=== PATIENT | male | born 1950 | race Caucasian/White ===

== ENCOUNTER 2023-06-24 13:45 | Outpatient (RCR) | payer MEDICARE, SELFPAY | END 2023-09-22 23:59 | disposition home or self-care (01) | LOC: ANHAUDASC 13:45 | DX: Z46.1 Encounter for fitting and adjustment of hearing aid (principal) | CPT/HCPCS: 99199 ==

== ENCOUNTER 2023-07-04 10:17 | Outpatient (CLI) | payer MEDICARE, SELFPAY | END 2023-07-04 10:18 | disposition home or self-care (01) | LOC: ANHAUDASC 10:18 | PROVIDERS: Visit Provider Family Medicine | DX: H90.3 Sensorineural hearing loss, bilateral (principal) | CPT/HCPCS: 92557; 92567 ==

== ENCOUNTER 2024-06-12 14:48 | Emergency (ER) | payer MEDICARE, SELFPAY ==
--- NOTE | ~2024-06-12 | CT_ITS ---
EXAMINATION: CT brain wo con DATE: 06/12/2024 16:09 INDICATION: Fall with head injury TECHNIQUE: Computed tomography (CT) of the head was performed without intravenous contrast. Sagittal and coronal reconstructions were performed. The mA was adjusted according to patient size. Iterative reconstruction technique was employed. The dose-length product was 605.33 mGy-cm. COMPARISON: None FINDINGS: No fracture. No acute intracranial hemorrhage, acute infarction or abnormal extra axial fluid collect ion. There is mild scattered white matter hypoattenuation consistent with chronic small vessel ischem ic disease. Symmetric prominence of the sulci and ventricles consistent with mild age-appropriate dif fuse cerebral volume loss. No mass/mass effect. Changes of bilateral intraocular lens replacement. Th e orbits, paranasal sinuses and mastoid air cells are normal. IMPRESSION: 1. Normal aging brain. No fracture or acute intracranial process. Reviewed, dictated and finalized at location B. ING MANAGER
--- NOTE | ~2024-06-12 | XR_ITS ---
EXAMINATION: XR knee LT min 4V DATE: 06/12/2024 16:02 INDICATION: Left knee pain. Fall. TECHNIQUE: 4 views of left knee were obtained. COMPARISON: None. FINDINGS: Alignment is normal. No fracture. There is mild osteoarthritis of lateral and patellofemora l compartments characterized by tiny osteophytes. No knee joint effusion. There is prepatellar soft t issue swelling. IMPRESSION: 1. Mild left knee osteoarthritis. Reviewed, dictated and finalized at location A. EDUCATOR
--- NOTE | ~2024-06-12 | XR_ITS ---
XR shoulder LT min 2V Ordering provider: Miranda Foster History: . fall . Comparison: None. FINDINGS: BONES: No acute fracture or dislocation. JOINT SPACES: The acromioclavicular joint shows osteoarthritic changes. The glenohumeral joint is nor mal. SOFT TISSUES: Normal. IMPRESSION: No acute osseous abnormality left shoulder. Reviewed, dictated and finalized at location A. AL LATHE MACHINIST
--- NOTE | ~2024-06-12 | XR_ITS ---
EXAMINATION: XR ribs LT 2V w CXR 2V DATE: 06/12/2024 16:02 INDICATION: Left rib pain. Fall. TECHNIQUE: Frontal and lateral views of the chest and 2 views on 3 radiographs of the left ribs were obtained. COMPARISON: None. FINDINGS: CHEST TWO VIEWS: There is an interstitial pattern in the lungs with a lower lung predominance. No ple ural effusion or pneumothorax. The heart size is normal. LEFT RIBS: There are old healed fractures of left ninth and 10th ribs. IMPRESSION: 1. No acute rib fracture. 2. Diffuse interstitial pattern in the lungs, consistent with mild pulmonary edema versus chronic zak g disease. Reviewed, dictated and finalized at location A. DIE PRESS FEEDER IMPRESSION: 1. No acute rib fracture. 2. Diffuse interstitial pattern in the lungs, consistent with mild pulmonary ed giorgi versus chronic lung disease.
[2024-06-12 15:08] VITALS: BP 167/94; PULSE 71; RESP 18; TEMP 36.3; O2SAT 100
--- NOTE | 2024-06-12 15:36 | ED.WOUNDLAC ---
HPI - Wound/Laceration General Chief Complaint: Wound/Laceration Stated Complaint: trip and fall, lac to head, bleeding controlled Time Seen by Provider: 06/12/24 16:18 Focused HPI: 73-year-old male presents with his at bedside for a ground level fall that occurred prior to arrival. Patient states he was walking and talking when he did not realize he was about to step off of a curb and fell to the ground. He landed on the left side of his body. He did hit his head obtain 2 small lacerations to the left eyebrow. Bleeding controlled with bandage. Last Tdap unknown. He is complaining of pain to his left shoulder, left ribs and left knee. Denies neck or back pain. He is not anticoagulated. Denies other injuries acquired. GENERAL: Well-appearing, well-nourished, and in no acute distress. HEAD: Normocephalic. One less than 0.5 small lacerations to the left lateral eyebrow with mild active bleeding, no deep structures or foreign bodies visualized. Small abrasion medial to the laceration. No bony tenderness, crepitus, step-offs or deformities CHEST: Clear to auscultation. ?No respiratory distress. Tenderness to the left anterior lateral chest wall with no overlying ecchymosis, crepitus, step-offs or deformities EXT: Tenderness to the medial joint line of the left knee with no obvious deformity or edema, full active range of motion of knee, DP pulse 2+, sensation intact. Diffuse tenderness the left proximal humerus without overlying deformity or ecchymosis, full range of motion, sensation intact, automotive product engineer strength 5/5, radial pulse 2 +, sensation intact HEART: Regular rate and rhythm.? NEURO: ?Alert and oriented x3. Cranial nerves 2-12 intact. Strength 5/5 in BUE and BLE. Sensation intact throughout Patient screened in triage and initial orders placed.? ?Additional care and disposition to be based upon?diagnostic testing and treatment. History of Present Illness HPI narrative: Agree with the above note Related Data Home Medications ?Medication ?Instructions ?Recorded ?Confirmed ?Last Taken ?Type ascorbic acid (vitamin C) 125 mg 125 mg PO DAILY 06/29/19 Unknown History chewable tablet (Vitamin C) buspirone 10 mg tablet 10 mg PO BID 06/29/19 Unknown History calcium 600 mg (as carbonate)-vit tablet PO 06/29/19 Unknown History D3 10 mcg (400 unit) chewable tablet (Calcium 600 with Vitamin D3) fluticasone propionate 50 2 spray intranasal DAILY 06/29/19 Unknown History mcg/actuation nasal spray,suspension (Allergy Relief (fluticasone)) lamotrigine 100 mg tablet 100 mg PO BID 06/29/19 Unknown History (Lamictal) multivitamin 1 tablet PO DAILY 06/29/19 Unknown History omega-3 fatty acids-fish oil 360 1 cap PO DAILY 06/29/19 Unknown History mg-1,200 mg capsule (Fish Oil) Allergies Allergy/AdvReac Type Severity Reaction Status Date / Time NKDA Allergy Unknown none Uncoded 06/26/23 09:49 Review of Systems Review of Systems: All systems reviewed & are unremarkable except as noted in HPI and below PMFSH Past Medical History Medical History (Updated 06/12/24 @ 16:51 by Miranda Foster PA-C) Essential tremor Bipolar 1 disorder, manic, full remission Seasonal allergies Family History Family History (System 06/26/23 @ 09:49 by Clay Connelly) Grandparent Hypertension Cerebrovascular accident Family history of throat cancer Mother Hypertension Family history of dementia Family history of malignant neoplasm of breast in first degree relative Father Cerebrovascular accident Sibling Family history of diabetes mellitus in first degree relative Social History Social History (System 06/26/23 @ 09:49 by Clay Connelly) Smoking status: Never smoker Alcohol intake: never Exam Narrative: GENERAL: Well-appearing, well-nourished, and in no acute distress. HEAD: Normocephalic. One less than 0.5 small lacerations to the left lateral eyebrow with mild active bleeding, no deep structures or foreign bodies visualized. Small abrasion medial to laceration. No bony tenderness, crepitus, step-offs or deformities CHEST: Clear to auscultation. ?No respiratory distress. Tenderness to the left anterior lateral chest wall with no overlying ecchymosis, crepitus, step-offs or deformities EXT: Tenderness to the medial joint line of the left knee with no obvious deformity or edema, full active range of motion of knee, DP pulse 2+, sensation intact. Diffuse tenderness the left proximal humerus without overlying deformity or ecchymosis, full range of motion, sensation intact, automotive product engineer strength 5/5, radial pulse 2 +, sensation intact HEART: Regular rate and rhythm.? NEURO: ?Alert and oriented x3. Cranial nerves 2-12 intact. Strength 5/5 in BUE and BLE. Sensation intact throughout Course Vital Signs Vital signs: Vital Signs Temperature 97.3 F L 06/12/24 15:08 Pulse Rate 71 06/12/24 15:08 Respiratory Rate 18 06/12/24 15:08 Blood Pressure 167/94 H 06/12/24 15:08 Pulse Oximetry 100 06/12/24 15:08 Temperature 97.3 F L 06/12/24 15:08 Pulse Rate 71 06/12/24 15:08 Respiratory Rate 18 06/12/24 15:08 Blood Pressure 167/94 H 06/12/24 15:08 Pulse Oximetry 100 06/12/24 15:08 Procedures Laceration Laceration 1: Time: 19:03 Site: face Side (If applicable): left Size (cm): 0.25 Description: linear Pre-repair: wound explored, irrigated and irrigated extensively ====== Skin Level ====== Skin layer closed with: dermabond ====== Subcutaneous Layer ====== ====== Muscle Layer ====== ====== Tendon Layer ====== MDM - Wound/Laceration MDM Narrative Medical decision making narrative: 73-year-old male presents to the emergency department after mechanical ground level fall that occurred prior to arrival. Patient did hit his head but did not lose consciousness. He is not anticoagulated. Exam is significant for the above. CT brain shows no acute intracranial findings. X-ray of the shoulder, knee and ribs show no acute findings. Patient was updated on workup. Laceration irrigated with normal saline and closed with skin glue without complications. Tdap updated. Patient was advised to follow-up with PCP and return precautions were discussed. He is agreeable with the plan verbalized understanding. Discharged in stable condition. Discharge Plan Discharge Clinical Impression: Laceration Fall Qualifiers: Encounter type: initial encounter Qualified Code(s): W19.XXXA - Unspecified fall, initial encounter Contusion of knee Qualifiers: Encounter type: initial encounter Laterality: left Qualified Code(s): S80.02XA - Contusion of left knee, initial encounter Contusion of rib Qualifiers: Encounter type: initial encounter Laterality: left Qualified Code(s): S20.212A - Contusion of left front wall of thorax, initial encounter Patient Disposition: Home, Self-Care Condition: Stable Instructions: Antibiotic Form, Laceration (DC), Knee Pain (ED), Rib Contusion (ED) Additional Instructions: Take Tylenol as needed for pain. Follow up with her primary care provider. Return to the emergency department if you develop surrounding redness, drainage, vision changes, focal numbness or weakness or other concerning symptoms. Patient Language: Dominican Prescriptions: No Action Calcium 600 with Vitamin D3 600 mg(1,500mg) -400 unit tablet,chewable PO ascorbic acid (vitamin C) [Vitamin C] 125 mg tablet,chewable 125 mg PO DAILY omega-3 fatty acids-fish oil [Fish Oil] 360-1,200 mg capsule 1 cap PO DAILY multivitamin Tablet 1 tablet PO DAILY fluticasone propionate [Allergy Relief (fluticasone)] 50 mcg/actuation spray,suspension 2 spray NASAL DAILY Rx Instructions: administer into each nostril lamotrigine [Lamictal] 100 mg tablet 100 mg PO BID buspirone 10 mg tablet 10 mg PO BID Patient Comments: Dr. Pardo (psych) prescribes Follow-up/Referrals: Felix,Tariq Louis MD [Primary Care Provider] -
[2024-06-12] MEDS: TETANUS,DIPHTHERIA,AC PERTUSSIS ADULT (0.5 ML) BOOSTRIX IM (16:57)
== END 2024-06-12 17:00 | disposition home or self-care (01) ==
PROVIDERS: Emergency Provider Physician Assistant; PCP Family Medicine
DX: S01.112A Laceration without foreign body of left eyelid and periocular area, initial encounter (principal); S80.02XA Contusion of left knee, initial encounter; S20.212A Contusion of left front wall of thorax, initial encounter; F31.9 Bipolar disorder, unspecified; G25.0 Essential tremor; W10.1XXA Fall (on)(from) sidewalk curb, initial encounter; Z23 Encounter for immunization
CPT/HCPCS: 12011; 70450; 71046; 71100; 73030; 73564; 90471; 90715; 99284

== ENCOUNTER 2024-10-08 00:46 | Day surgery (SDC) | payer MEDICARE, SELFPAY ==
[2024-07-13 15:08] VITALS: BMI 21.2
[2024-09-28 12:55] VITALS: BMI 21.2
--- OUTSIDE RECORDS SUMMARY | 2024-10-08 00:49 | XMS_ITS | Clinical Summary ---
Author Organization [facility] Address [address] [place] [address] Care Team Providers Care Director Of Teacher Education Name Role Phone Tianna Olson MD Primary Care Pro vider Allergies No known active allergies Medications lamoTRIgine 100 MG tablet Take 200 mg by mouth 2 (two) times daily. Active propranolol 10 MG tablet Take 10 mg by mouth 2 (two) times daily. Active busPIRone 10 MG tablet Take 10 mg by mouth 2 (two) times daily. Active fluticasone propionate 50 MCG/ACT nasal spray 1 spray by Each Nostril route daily. Active calcium carb-cholecalci ferol 600-400 MG-UNIT Tab tablet 1 tablet daily. Active multi vitamin/mineral s tablet Take 1 tablet by mouth daily. Active omega-3 fatty acid 500 MG capsule Take 1,200 mg by mouth daily. Active Social History Tobacco Use Types Packs/Day Years Used Date Smoking Tobacco: Never Smokeless Tobacco: Never Alcohol Use Standard Drinks/Week Comments Not Currently 0 (1 standard drink = 0.6 oz pur e alcohol) Sex and Gender Information Value Date Recorded Sex Assigned at Not on file Legal Sex Male 11:50 AM CDT Gender Identity Not on file Sexual Orientation Not on file Last Filed Vital Signs Vital Sign Reading Time Taken Comments Blood Pressure 116/58 2019 12:43 PM CDT Pulse 62 2019 12:43 PM CDT Temperature 37 C (98.6 F) 2019 12:43 PM CDT Respiratory Rate 18 2019 12:43 PM CDT Oxygen Saturation 98% 2019 12:43 PM CDT Inhaled Oxygen Concentration - - Weight 63.5 kg (140 lb) 10/27/2019 4:42 PM CDT Height 170.2 cm (5' 7 ) 10/27/2019 4:42 PM CDT Body Mass Index 21.93 10/27/2019 4:42 PM CDT Plan of Treatment Health Maintenance Due Date Last Done Comments Colorectal Cancer Screening Colonoscopy (10 Years) 1948 Hepatitis C 1966 DTaP, Tdap and Td Vaccines ( 1 - Tdap) 11/07/1967 Pneumococcal Vaccine: 50+ Ye ars (1 of 1 - PCV) 1998 Zoster Vaccines (1 of 2) 1998 Annual Medicare Wellness Visit 2013 RSV Immunization or 60+ Years (1 - 1-dose 75+ series) 11/07/2023 COVID-19 Vaccine ( - 2023-2 5 season) 2024 Meningococcal B Vaccine Aged Out No l onger eligible based on patient's age to complete this topic Meningococcal Vaccine Aged Out No chalo renzo eligible based on patient's age to complete this topic RSV Immunizations Under 20 Months Aged Out No longer eligible based on patient's age to complete this topic Medical Devices Implanted Type Area Toe Stapler Device Identifier Shelf Expiration Date Model / Serial / Lot Iol [employer] Zcboo - [id number] Implanted:Qty: 1 on 2019 by Andrew Cruz MD at [facility] Lens Left: Eye [employer] 10/15/2022 [id number] / [id number] / Insurance MEDICARE [facility] Care Teams Director Of Teacher Education Relationship Specialty Start Date End Date Tianna Olson MD [address] [place] [address] PCP - General FAMILY PRACTICE 11/01/19
--- OUTSIDE RECORDS SUMMARY | 2024-10-08 00:49 | XMS_ITS | Patient Health Record ---
Author Organization [facility] Address [address] [place] [address] Care Team Providers Care Convention Planner Name Role Phone Monserrat Leyva Unavailable [phone] Migration, Provider Unavailable Unavailable Allergies No Known Allergies Reason For Referral No Information Medications Medication SIG (Take, Route, Frequency, Duration) Notes Start Date End Date Status Multivitamin - 1 tablet Orally Once a day Active [place] 3 1000 MG 1 capsule Orally onc e daily Active Rosuvastatin Calcium 20 MG 1 tablet Oral ly Once a day Active busPIRone HCl 10 MG Take [address] [facility] twice daily for 90 Active Ascorbic Acid 125 MG as directed Orally Active Propranolol HCl 10 MG 1 tablet Oral twic e a day for 90 days Active lamoTRIgine 100 MG 1.5 tablet in the mo rning and 2 tablets at bedtime Oral for 90 days Active Calcium + Vitamin D3 600-5 MG-MCG 1 tablet with a meal Orally Once a day Active Ferrous Sulfate 325 (65 Fe) MG 1 tablet Orally Three times a Week Active Fluticasone Propionate (Inhal) 50 MCG/ACT 1 puff Inhalation Twice a day Active Immunizations Vaccine Route Administration Date Status Comme nts Pneumococcal polysaccharide PPV23 Unknown 07/02/2016 Ad ministered Infuenza, trivalent, recombi nant, preservative free Unknown 03/16/2018 Administered Infuenza, trivalent, recombi nant, preservative free Unknown 04/22/2019 Administered Influenza, unspecified formulation Unknown 03/24/2020 A dministered Influenza, unspecified formulation Unknown 03/29/2021 A dministered Influenza, high dose seasonal Unknown 03/21/2015 Admini stered Influenza, high dose seasonal Unknown 03/22/2016 Admini stered Influenza, high dose seasonal Unknown 04/04/2017 Admini stered Social History Tobacco Use: Social History Observation Description Date Details (start date - stop date) Never Smoker NA - NA Sex Assigned At : Social History Observation Description Sex Assigned At Male Household Question Answer Notes Marital status: Tobacco Control (Standard) Question Answer Notes Tobacco use: Nonsmoker Problems Problem Type SNOMED Code ICD Code Onset Dates Problem Status W/U Status Risk Notes Problem Bipolar II disorder (44498037) Bipolar II disorder (F31.81) Active confirmed Problem Generalized anxiety disorder (05835607) Generalized anxiety disorder (F41.1) Active confirmed Vital Signs Height-cm 167.64 cm 10/21/2023 Height 66.00 in 10/21/2023 Encounters Encounter Location Date Provider Diagnosis [facility] [place] [address] [facility] [address] [place] [address] 10/15/2023 Provider Migration Generalized anxiety disorder F41.1 [place] [address] [place] [address] 10/21/2023 Monserrat Leyva Bipolar II disorder F31.81 and Generalized anxiety disorder F41.1 [facility] [address] [place] [address] 01/20/2024 Monserrat Autumn Bipolar II disorder F31.81 and Generalized anxiety disorder F41.1 [facility] [address] [place] [address] 07/20/2024 Monserrat Autumn Bipolar II disorder F31.81 and Generalized anxiety disorder F41.1 [facility] [address] [place] [address] 10/15/2023 Provider Migration [facility] [address] [place] [address] 10/26/2023 Provider Migration [facility] [address] [place] [address] 10/27/2023 Provider Migration [facility] [address] [place] [address] 10/28/2023 Provider Migration [place] [address] [place] [address] 12/19/2023 Monserrat Leyva Assessments Encounter Date Diagnosis (ICD Code) Assessment Notes Treatment Notes Treatment Clinical Notes Section Notes 01/20/2024 Bipolar II disorder (ICD-10 - F31.81) 01/20/2024 Generalized anxiety disorder (ICD-10 - F41.1) 10/21/2023 Bipolar II disorder (ICD-10 - F31.81) 10/21/2023 Generalized anxiety disorder (ICD-10 - F41.1) 10/15/2023 Generalized anxiety disorder (ICD-10 - F41.1) 07/20/2024 Bipolar II disorder (ICD-10 - F31.81) 07/20/2024 Generalized anxiety disorder (ICD-10 - F41.1) 01/20/2024 Other Stable, continue current medications. Refills sent in today. Patient educated on all medications including potential benefits, side effects, risks. Educated on proper dosing schedule and importance of compliance. 07/20/2024 Other Increase Lamictal to 150mg qAM, 200mg qPM for mood stabilization Patient educated on all medications including potential benefits, side effects, risks. Educated on proper dosing schedule and importance of compliance. -Assessment and treatment plan reviewed with patient. -Compliance with treatment plan importance discussed. -Discussed the risks/benefits of this medication -Discussed medication side effects. -Contact office if symptoms worsen. -Discussed that it can take up to 6-8 weeks to see full therapeutic effects of psychotropic medications. -Crisis prevention hotline 118. Plan Of Treatment Next Appt Details Provider Name:Monserrat Leyva, 01/11/2025 10:00:00 AM, [address] [address], [facility] [address], [place], [address], Insurance Providers Payer Name Payer Address Payer Phone Subscriber Number Group Number Insured Name Patient Relationship to Insured Coverage Start Date Coverage End Date Medicare-I l Medicare [address] [facility] [place] [address] [id number] JAYNEJAECANDACE YUSUF Self - patient is the insured [facility] Medicare Supplement [address] [facility] [place] [place] [address] [id number] CANDACE PAGAN Self - patient is the insured Medical (General) History Medical History History ICD Code Problems: Bipolar II disorder Generalized anxiety disorder Patient encounter status Recurrent manic episodes, moderate essential tremor Surgical History Surgery Date(Month/Year) Cataract surgery (92751) 08/26/2019 Any surgical history 11/22/2000
--- OUTSIDE RECORDS SUMMARY | 2024-10-08 00:49 | XMS_ITS | Clinical Summary ---
Author Organization [address] Address [address] [place] [id number] Care Team Providers Care Bin Operator Name Role Phone Tariq Washington MD Primary Care Provider [phone] Monserrat Leyva NP Unavailable [phone] Shekhar Joy MD Unavailable [phone] Andrew Cruz MD Unavailable [phone] Allergies No known active allergies Medications lamoTRIgine (LaMICtal) 100 mg tablet TAKE 1 TABLET BY MOUTH IN THE MORNING DAILY AND TWO TABLETS NIGHTLY AT BEDTIME. 07/18/19 22 Active propranoloL (INDERAL) 10 mg tablet Take 1 tablet (10 mg total) by mouth 2 (two) times a day 07/17/19 22 Active omega-3 fatty acids 500 mg capsule Take 1,200 mg by mouth daily Active multivitamin with minerals (Multiple Vitamin-Minera ls) tablet Take 1 tablet by mouth daily Active busPIRone (BUSPAR) 10 mg tablet Take 2 tablets (20 mg total) by mouth 2 (two) times a day 08/20/19 24 Active rosuvastatin (Crestor) 20 mg tablet Take 1 tablet (20 mg total) by mouth daily 90 tablet 3 04/01/20 24 025 Active calcium carbonate-margarito min D3 1500 mg (600 mg elemental) -200 units per tablet daily Active ascorbic acid, vitamin C, 125 mg capsule as directed Orally Active ferrous sulfate 325 mg (65 mg of elemental iron) tablet 1 tablet Orally Three times a Week Active fluticasone propionate (FLONASE) 50 mcg/actuation nasal spray Administer 1 spray into each nostril daily Active fluticasone propionate (FLOVENT DISKUS) 50 mcg/actuation diskus inhaler 1 puff every 12 hours 025 Discontinued Active Problems Problem Noted Date Diagnosed Date Bipolar II disorder 04/01/2024 Generalized anxiety disorder 04/01/2024 Mild neurocognitive disorder 11/01/2023 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 Gianni Manrique is not up to date on screening tests. He is in need of hepatitis B screening and Colon cancer screening. He is up to date on needed preventative vaccinations. We discussed healthy lifestyle habits, educational material has been given. Medications reviewed, changes documented as per the medical record and discussed with patient along with risks vs benefits. Return in 6 months Prediabetes 09/26/2023 Manic affective disorder, re current episode, moderate degree 08/06/2023 Encounter for medical examination to establish c are 09/26/2022 Assessment & Plan (09/26/2022 10:29 AM CDT): A(n) initial well visit to establish care has been performed today. Gianni Manrique is not up to date on screening tests. He is in need of Cholesterol screening- we will get record on his last colonoscopy. He is not up to date on needed preventative vaccinations; He is in need of Tdap/Td, Pneumonia (Prevnar-13 or Pneumovax-23) and Zoster. We discussed healthy lifestyle habits, educational material has been given. Medications reviewed, changes documented as per the medical record and discussed with patient along with risks vs benefits. Return in 1 year Encounters Date Type Department Care Team Description 09/30/2024 Results Follow-Up [facility] Primary Care at [address] [id number] Tariq Washington MD 09/29/2024 6:03 PM CDT - 09/29/2024 11:59 PM CDT Hospital Encounter [address] [address] Manic affective disorder, recurrent episode, moderate degree (HCC); Prediabetes; Iron deficiency anemia, unspecified iron deficiency anemia type; Screening for malignant neoplasm of prostate Discharge Disposition: Discharge to home or self care 09/29/2024 10:30 AM CDT Lab [facility] Outpatient Lab at [address] [phone] Encounter for medical examination to establish care (Primary Dx); Prediabetes 09/29/2024 10:00 AM CDT Office Visit [facility] Primary Care at [address] [phone] Tariq Washington MD Encounter for annual wellness visit (AWV) in Medicare patient (Primary Dx); Manic affective disorder, recurrent episode, moderate degree (HCC); Prediabetes; Iron deficiency anemia, unspecified iron deficiency anemia type; Screening for malignant neoplasm of prostate from Last 3 Months Immunizations Immunization Administration Dates Next Due Influenza, Quad, Adjuvantate d, Intramuscular 05/08/2023,03/30/2022,03/29/2021,03/24 Influenza, Trivalent, Adjuva nted, Intramuscular 03/24/2024,04/22/2019,04/22/2019,03/16,03/16/2018 Influenza, Trivalent, High D ose, Split, Preservative Free, Intramuscular 04/04/2017,03/22/2016,03/21/2015 Influenza, Unspecified 03/29/2021,03/24/2020 Pneumococcal Conjugate PCV 13 07/12/2017 Pneumococcal Conjugate Pcv20 02/26/2024 Pneumococcal Polysaccharide PPV23 07/02/2016 Tdap 06/12/2024 ZOSTER Recombinant 06/01/2013 Surgical History Surgery Date Site/Laterality Comments CATARACT EXTRACTION 06/10/2018 - 06/09/2019 Bilateral HERNIA REPAIR 06/10/2000 - 06/09/2001 TONSILLECTOMY 06/10/1962 - 06/09/1963 CATARACT EXTRACTION W/ INTRA OCULAR LENS IMPLANT 06/10/2023 - 06/09/2024 Bilateral Medical History Medical History Date Comments Anxiety 2010 Manic affective disorder, recurrent episode, mod erate degree (HCC) Essential tremor Family History Medical History Relation Name Comments Diabetes Brother Colon cancer Father Kevan Manrique Stroke Father Kevan Manrique Alcohol abuse Father's Sister Diabetes type II Father's Sister No Known Problems Maternal Grandfather No Known Problems Maternal Grandmother Breast cancer Mother Migdalia Christineigler Cancer Mother Migdalia Manrique Narcolepsy Mother Migdaliaksenia Christineiglalexandre Throat cancer Paternal Grandfather Hypertension Paternal Grandmother Stroke Paternal Grandmother Asthma Son Chris Manrique Relation Name Status Comments Brother Alive Father Kevan Manrique Father's Sister Unknown Maternal Grandfather Maternal Grandmother Mother Migdalia Manrique Paternal Grandfather Paternal Grandmother Son Chris Manrique Alive Social History Tobacco Use Types Packs/Day Years Used Date Smoking Tobacco: Never Passive Smoke Exposure: Never Smokeless Tobacco: Never Tobacco Cessation:Counseling Given: Not Answered AUDIT-C Answer Date Recorded Q1: How often do you have a drink containing alc ohol? Monthly or less 09/25/2022 Q2: How many drinks containi ng alcohol do you have on a typical day when you are drinking? 1 or 2 09/25/2022 Q3: How often do you have si x or more drinks on one occasion? 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 Not on file Not on file Not on file Obstetrics History Last Filed Vital Signs Vital Sign Reading Time Taken Comments Blood Pressure 134/70 09/29/2024 9:59 AM CDT Pulse 69 09/29/2024 9:59 AM CDT Temperature 35.9 C (96.6 F) 09/29/2024 9:59 AM CDT Respiratory Rate 16 09/29/2024 9:59 AM CDT Oxygen Saturation 97% 09/29/2024 9:59 AM CDT Inhaled Oxygen Concentration - - Weight 63.5 kg (140 lb) 09/29/2024 9:59 AM CDT Height 170.2 cm (5' 7 ) 09/29/2024 9:59 AM CDT Body Mass Index 21.93 09/29/2024 9:59 AM CDT Plan of Treatment Health Maintenance Due Date Last Done Comments Covid-19 Vaccine ( season) 2024 04/25/2024, 06/06/2023, 04/21/2022, Additional history exists Depression Screening 09/29/2025 09/29/2024, 04/01/2024, 10/29/2023, Additional history exists Fall Risk Assessment 09/29/2025 09/29/2024, 10/29/2023, 09/26/2023, Additional history exists Well Visit 65+ 09/29/2025 09/29/2024, 09/08, 09/25/2022 Zoster Vaccine (2 of 2) 09/29/2025 06/01/2013 Post poned from 07/27/2013 (Insurance / Financial) DTaP/Tdap/Td Vaccine (2 - Td or Tdap) 06/12/2034 06/12/2024 Colon Cancer Screening-Colonoscopy Discontinued 03/01/2011 Hepatitis C Screening Completed 09/25/2022 Hepatitis B Screening Completed 09/26/2023 Pneumococcal vaccine 65+ Completed 024, 07/12/2017, 07/02/2016 Influenza Vaccine Completed 03/24/2024, , 03/30/2022, Additional history exists Procedures Procedure Name Priority Date/Time Associated Diagnosis Comments EGFR Routine 09/29/2024 12:00 PM CDT Manic affective disorder, recurrent episode, moderate degree (HCC) DIFFERENTIAL AUTO Routine 09/29/2024 12: 00 PM CDT Iron deficiency anemia, unspecified iron deficiency anemia type LIPID PANEL Routine 09/29/2024 12:00 PM CDT Prediabetes PSA SCREEN Routine 09/29/2024 12:00 PM CDT Screening for malignant neoplasm of prostate CBC WITH AUTO DIFFERENTIAL Routine 09/29/2024 12:00 PM CDT Iron deficiency anemia, unspecified iron deficiency anemia type HEMOGLOBIN A1C Routine 09/29/2024 12:00 PM CDT Prediabetes COMPREHENSIVE METABOLIC PANEL Routine 09/29/2024 12:00 PM CDT Manic affective disorder, recurrent episode, moderate degree (HCC) HEPATITIS C ANTIBODY Routine 09/25/2022 10:27 AM CDT Encounter for hepatitis C screening test for low risk patient HM COLONOSCOPY Routine 03/01/2011 from Last 3 Months or Most Recently Relevant to Health Maintenance Results * eGFR (09/29/2024 12:00 PM CDT) eGFR >90 >=60 mL/min/1. 73 m2 Comment: Interpretive Data Reference Interval Normal >/= 90 mL/min/1.73m2 Mildly decreased* 60 - 89 mL/min/1.73m2 Mildly to moderately decreased 45 - 59 mL/min/1.73m2 Moderately to severely decreased 30 - 44 mL/min/1.73m2 Severely decreased 15 - 29 mL/min/1.73m2 Kidney Failure < 15 mL/min/1.73m2 *Relative to young adult level Estimated glomerular filtration rate is determined by the 2020 CKD-EPI equation recommended by the National Kidney Foundation (A Unifying Approach to GFR Estimation: Recommendations of the NKF-ASK Task Force on Reassessing the Inclusion of Race in Diagnosing Kidney Disease, JASN 2020). The CKD-EPI equation should not be used for patients with unstable renal function and has not been validated in children and those over 70. Current interpretive data was last reviewed 2021. Blood 09/29/2024 12:0 0 PM CDT 09/29/2024 7:22 PM CDT us Tariq Washington MD LAB BLOOD ORDERABLES Final Result [facility] [address] Department [place] [address] * Differential, auto (09/29/2024 12:00 PM CDT) Neutrophil abs 5.63 1.50 - 6.50 K/cumm Imm gran abs 0.01 0.00 - 0.10 K/cumm [facility] Lymphocyte abs 2.25 0.80 - 3.30 K/cumm [facility] Monocyte abs 0.80 0.20 - 0.80 K/cumm [facility] Eosinophil abs 0.21 0.00 - 0.50 K/cumm [facility] Basophil abs 0.06 0.00 - 0.10 K/cumm [facility] Neutrophil pct 62.9 % [facility] Comment: Interpretive Data Percent cell count reference ranges are not reported, since discordance with absolute values may lead to misinterpretation of CBC data. Current Interpretive Data was last revised on 2017. Imm gran pct 0.1 % [facility] Comment: Interpretive Data Percent cell count reference ranges are not reported, since discordance with absolute values may lead to misinterpretation of CBC data. Current Interpretive Data was last revised on 2017. Lymphocyte pct 25.1 % [facility] Comment: Interpretive Data Percent cell count reference ranges are not reported, since discordance with absolute values may lead to misinterpretation of CBC data. Current Interpretive Data was last revised on 2017. Monocyte pct 8.9 % [facility] Comment: Interpretive Data Percent cell count reference ranges are not reported, since discordance with absolute values may lead to misinterpretation of CBC data. Current Interpretive Data was last revised on 2017. Eosinophil pct 2.3 % [facility] Comment: Interpretive Data Percent cell count reference ranges are not reported, since discordance with absolute values may lead to misinterpretation of CBC data. Current Interpretive Data was last revised on 2017. Basophil pct 0.7 % [facility] Comment: Interpretive Data Percent cell count reference ranges are not reported, since discordance with absolute values may lead to misinterpretation of CBC data. Current Interpretive Data was last revised on 2017. Blood 09/29/2024 12:0 0 PM CDT 09/29/2024 7:04 PM CDT Tariq Washington MD LAB BLOOD ORDERABLES Final Result Performing Organization Address [facility] Phone Number [facility] [address] Department [place] [address] * PSA screen (09/29/2024 12:00 PM CDT) PSA-Total 0.40 <=6.20 ng/mL Comment: Interpretive Data AGE SEX REFERENCE INTERVAL 0 minutes-150 years Female None 0 minutes-49 years Male None 50-59 years Male 0-3.90 60-69 years Male 0-5.40 70-79 years Male 0-6.20 80-150 years Male 0-6.20 The Daisy PSA Total assay procedure was used. Results from different manufacturers or methods may not be comparable. Serial testing should be performed using the same method. Current interpretive data last revised 21. Blood 09/29/2024 12:0 0 PM CDT 09/29/2024 7:04 PM CDT Tariq Washington MD LAB BLOOD ORDERABLES Final Result Performing Organization Address [facility] de Phone Number [facility] [address] [place] [address] * (ABNORMAL) CBC with auto differential (09/29/2024 12:00 PM CDT) WBC 8.96 3.80 - 9.90 K/cumm Hgb 13.3 13.0 - 17.5 g/dL [facility] Hct 41.9 38.9 - 50.3 % [facility] Plt 262 150 - 400 K/cumm [facility] MPV 8.9(L) 9.1 - 12.3 fL [facility] RBC 4.30 4.30 - 5.80 M/cumm [facility] MCV 97.4(H) 81.3 - 96.4 fL [facility] MCH 30.9 27.1 - 33.3 pg [facility] MCHC 31.7(L) 32.3 - 35.7 g/dL [facility] RDW CV 14.5 11.1 - 14.9 % [facility] RDW SD 52.2(H) 35.7 - 48.1 fL [facility] NRBC abs 0.00 0.00 - 0.01 K/cumm [facility] Blood 09/29/2024 12:0 0 PM CDT 09/29/2024 7:04 PM CDT Tariq Washington MD LAB BLOOD ORDERABLES Final Result Performing Organization Address [facility] de Phone Number [facility] [address] [place] [address] * (ABNORMAL) Hemoglobin A1c (09/29/2024 12:00 PM CDT) Pathologist [facility] Hgb A1C 6.0(H) 4.0 - 5.6 % Estimated Average Glucose 126 mg/dL [facility] Comment: The ADA recommends reporting an estimated Average Glucose (eAG) with all Hemoglobin A1c results using the equation derived from a study of 507 normal and diabetic adults. Minority populations were underrepresented and children were not included. (Diabetes Care 31:3627-4974, 2008). The eAG is not equivalent to a fasting glucose. Blood 09/29/2024 12:0 0 PM CDT 09/29/2024 7:04 PM CDT Tariq Washington MD LAB BLOOD ORDERABLES Final Result Performing Organization Address [facility] Co de Phone Number [facility] [address] Department [employer] [place], [place] [id number] * Lipid panel (09/29/2024 12:00 PM CDT) Pathologist [facility] Cholesterol 107 30 - 199 mg/dL Comment: Interpretive Data Ages < or = 19 years Acceptable: <170 mg/dL Borderline high: 170-199 mg/dL High: >or= 200 mg/dL Ages > or = 20 years Desirable: <200 mg/dL Borderline high: 200-239 mg/dL High: >or= 240 mg/dL Literature References: 1. Expert Panel on Integrated Guidelines for Cardiovascular Health and Risk Reduction in Children and Adolescents. Pediatrics 2011;128:S213 2. NCEP Expert Panel. Circulation 2004;110:227 Current Interpretive Data was last revised on 2018. Triglycerides 33 <=149 mg/dL [facility] Comment: Interpretive Data Ages < or = 9 years Acceptable: <75 mg/dL Borderline high: 75-99 mg/dL High: >or= 100 mg/dL Ages 10 to 20 years Acceptable: <90 mg/dL Borderline high: 90-129 mg/dL High: >or= 130 mg/dL Ages > or = 20 years Desirable: <150 mg/dL Borderline high: 150-199 mg/dL High: 200-499 mg/dL Very high: >or= 499 mg/dL Literature References: 1. Expert Panel on Integrated Guidelines for Cardiovascular Health and Risk Reduction in Children and Adolescents. Pediatrics 2011;128:S213 2. NCEP Expert Panel. Circulation 2004;110:227 Current Interpretive Data was last revised on 2018. HDL 56 >=40 mg/dL [facility] Comment: Interpretive Data Ages < or = 19 years Acceptable: >45 mg/dL Borderline low: 40-45 mg/dL Low: <40 mg/dL Ages > or = 20 years Desirable: >or= 60 mg/dL Low: <40 mg/dL Literature References: 1. Expert Panel on Integrated Guidelines for Cardiovascular Health and Risk Reduction in Children and Adolescents. Pediatrics 2011;128:S213 2. NCEP Expert Panel. Circulation 2004;110:227 Current Interpretive Data was last revised on 2018. LDL, calculated 41 <=129 mg/dL [facility] Comment: Interpretive Data Ages < or = 19 years Acceptable: <110 mg/dL Borderline high: 110-129 mg/dL High: >or= 130 mg/dL Ages > or = 20 years Optimal: <100 mg/dL Near optimal: 100-129 mg/dL Borderline high: 130-159 mg/dL High: >160 mg/dL Calculated using the Alarcon LDL-C estimating equation. This equation was implemented on 2024. Prior to this date LDL-C was estimated using the Friedewald equation. Literature References: 1. Expert Panel on Integrated Guidelines for Cardiovascular Health and Risk Reduction in Children and Adolescents. Pediatrics 2011;128:S213 2. NCEP Expert Panel. Circulation 2004;110:227 3. Dorian M et al. SHAUN Cardiol. 2020 October 08;5(5):540-548. doi: 10.1001/jamacardio.2020.0013 Current Interpretive Data was last revised on 2024. Non-HDL Cholesterol 51 mg/dL [facility] Comment: Interpretive Data Ages < or = 19 years Acceptable: <120 mg/dL Borderline high: 120-144 mg/dL High: >145 mg/dL Ages > or = 20 years When triglycerides are >200 mg/dL, Non-HDL cholesterol is a secondary target of therapy with treatment goals that are 30 mg/dL greater than the LDL cholesterol target. Literature References: 1. Expert Panel on Integrated Guidelines for Cardiovascular Health and Risk Reduction in Children and Adolescents. Pediatrics 2011;128:S213 2. NCEP Expert Panel. Circulation 2004;110:227 Current Interpretive Data was last revised on 2018. Chol/HDL ratio 2 [facility] Blood 09/29/2024 12:0 0 PM CDT 09/29/2024 7:04 PM CDT us Tariq Washington MD LAB BLOOD ORDERABLES Final Result [facility] [address] Department [place] [address] * (ABNORMAL) Comprehensive metabolic panel (09/29/2024 12:00 PM CDT) Sodium 138 135 - 145 mmol/L Potassium, pl 3.9 3.3 - 4.9 mmol/L [facility] Chloride 99 97 - 110 mmol/L [facility] CO2 28 22 - 32 mmol/L [facility] Anion gap 11 2 - 15 mmol/L [facility] BUN 14 6 - 25 mg/dL [facility] Creatinine 0.78(L) 0.80 - 1.30 mg/dL [facility] Glucose 94 70 - 199 mg/dL [facility] Comment: Interpretive Data Fasting glucose >/= 126 mg/dl is diagnostic for diabetes. Fasting is defined as no caloric intake for at least 8 hours. Fasting glucose between 100 mg/dl to 125 mg/dl is diagnostic of prediabetes. In a patient with classic symptoms of hyperglycemia or hyperglycemic crisis, a random glucose >/= 200 mg/dl is diagnostic for diabetes. In the absence of unequivocal hyperglycemia, results should be confirmed by repeat testing. The classification and Diagnosis of Diabetes Diabetes Care 2021; 46: S19-S40. Current interpretive data was last revised 2022. Calcium 9.6 8.5 - 10.3 mg/dL [facility] Bilirubin, total 0.3 0.1 - 1.2 mg/dL [facility] Protein, pl 6.8 6.5 - 8.5 g/dL [facility] Albumin 4.0 3.5 - 5.0 g/dL [facility] Alk phos 81 40 - 130 Units/L [facility] ALT 23 7 - 55 Units/L [facility] AST 36 10 - 50 Units/L [facility] Blood 09/29/2024 12:0 0 PM CDT 09/29/2024 7:04 PM CDT us Tariq Washington MD LAB BLOOD ORDERABLES Final Result [facility] [address] Department [place] [address] * Hepatitis C antibody (09/25/2022 10:27 AM CDT) Hep C Ab Nonreactive Nonreactive [facility] Comment: Interpretive Data Nonreactive: Antibodies to HCV not detected. Does NOT exclude the possibility of recent exposure to HCV. Equivocal: Equivocal for HCV antibodies. Supplemental molecular testing will be automatically performed to determine infection status in accordance with current CDC screening recommendations. Reactive: Positive for HCV antibodies. This may represent current or past HCV infection. Supplemental molecular testing will be automatically performed to determine current infection status in accordance with current CDC screening recommendations. Interpretive data was last revised on 2019. Blood 09/25/2022 10:2 7 AM CDT 09/25/2022 4:16 PM CDT Tariq Washington MD LAB MICROBIOLOGY - GENERAL ORDERABLES Edited Result - Final Performing Organization Address City/State/ZIP [facility] [place] [address] [facility] Department [place] [address] * HM COLONOSCOPY (03/01/2011) Historical Provider HEALTH MAINTENANCE Final Result from Last 3 Months or Most Recently Relevant to Health Maintenance Insurance MEDICARE [facility] MEDICARE [facility] Care Teams Bin Operator Relationship Specialty Start Date End Date Tariq Washington MD [address] [place] [address] PCP - General Family Medicine 09/25/22 Monserrat Leyva NP [address] [place] [address] Psychiatry 09/26/23 Shekhar Joy MD [address] [place] [address] [address] [place] [address] Referring Physician Psychiatry 09/26/23 Andrew Cruz MD [address] [place] [address] Referring Physician Ophthalmology 09/26/23
--- OUTSIDE RECORDS SUMMARY | 2024-10-08 00:49 | XMS_ITS | Encounter Summary ---
Author Organization [facility] Address [address] [place] [address] Care Team Providers Care Email Deployment Specialist Name Role Phone Tianna Olson MD Primary Care Pro vider Encounter Details Date Type Department Care Team (Late st Contact Info) Description 10/27/2019 Prep for Procedure [facility] [address] [place], [place] [id number] Andrew Cruz MD [address] [facility] [address] [place] [address] Social History Tobacco Use Types Packs/Day Years Used Date Smoking Tobacco: Never Smokeless Tobacco: Never Alcohol Use Standard Drinks/Week Comments Not Currently 0 (1 standard drink = 0.6 oz pur e alcohol) Sex and Gender Information Value Date Recorded Sex Assigned at Not on file Legal Sex Male 11:50 AM CDT Gender Identity Not on file Sexual Orientation Not on file COVID-19 Exposure Response Date Recorded In the last month, have you been in contact with someone who was confirmed or suspected to have Coronavirus / COVID-19? No / Unsure 10/27/2019 4:21 PM CDT documented as of this encounter Plan of Treatment Not on file documented as of this encounter Results * PRE-SURGICAL/PRE-PROCEDURE CORONAVIRUS (COVID 19) (11/03/2019 10:03 AM CDT) CORONAVIRUS SARS COV 2 PCR (RESP) NOT DETECTED NOT DETECTED 11/04/2019 9:[address] [facility] [address] Comment: A Not Detected (negative) test result for this test means that SARS- CoV-2 RNA was not present in the specimen above the limit of detection. A negative result does not rule out the possibility of COVID-19 and should not be used as the sole basis for treatment or patient management decisions. If COVID-19 is still suspected, based on exposure history together with other clinical findings, re-testing should be considered in consultation with public health authorities. Laboratory test results should always be considered in the context of clinical observations and epidemiological data in making a final diagnosis and patient management decisions. Please review the Fact Sheets and FDA authorized labeling available for health care providers and patients using the following websites: https://www.Dealer.com.Save22/home/Covid-19/HCP/QuestIVD/fact- sheet.html https://www.Dealer.com.Save22/home/Covid-19/Patients/ QuestIVD/fact-sheet.html This test has been authorized by the FDA under an Emergency Use Authorization (EUA) for use by authorized laboratories. Due to the current public health emergency, [facility] is receiving a high volume of samples from a wide variety of swabs and media for COVID-19 testing. In order to serve patients during this public health crisis, samples from appropriate clinical sources are being tested. Negative test results derived from specimens received in non-commercially manufactured viral collection and transport media, or in media and sample collection kits not yet authorized by FDA for COVID-19 testing should be cautiously evaluated and the patient potentially subjected to extra precautions such as additional clinical monitoring, including collection of an additional specimen. Methodology: Nucleic Acid Amplification Test (NAAT) includes PCR or TMA Additional information about COVID-19 can be found at the [facility] website: www.Idea Device.Save22/Covid19. Test performed at [facility] [address] [facility] [place] [address] Director: ABDULLAHI NIXON DO,MPH NASOPHARYNGEAL SWAB / Unknown 11/03/2019 10:03 AM CDT Andrew Cruz MD MICROBIOLOGY - GENERAL ORDERA BLES Final Result [facility] [address] [place] [address], documented in this encounter Visit Diagnoses Diagnosis Pre-op testing- Primary Preoperative examination, unspecified documented in this encounter Additional Health Concerns Infection Onset Date Last Indicated Resolved Time COVID-19 Rule Out 11/03/2019 11/03/2019 11/04/2019 9:10 PM CDT documented as of this encounter Care Teams Email Deployment Specialist Relationship Specialty Start Date End Date Tianna Olson MD [address] [place] [address] PCP - General FAMILY PRACTICE 11/01/19 documented as of this encounter
--- OUTSIDE RECORDS SUMMARY | 2024-10-08 00:49 | XMS_ITS | Encounter Summary ---
Author Organization [facility] Healthcare Address [address] [place] [address] Care Team Providers Care Supervisor Industrial Arts Education Name Role Phone Tariq Washington MD Primary Care Provider Monserrat Leyva NP Unavailable [phone] Shekhar Joy MD Unavailable [phone] Andrew Cruz MD Unavailable [phone] Encounter Details Date Type Department Care Team (Late st Contact Info) Description 09/30/2024 Results Follow-Up [facility] Medical Group Primary Care at [place] [address] [place] [address] Tariq Washington MD [address] [place] [address] [address] [place] [address] Social History Tobacco Use Types Packs/Day Years Used Date Smoking Tobacco: Never Passive Smoke Exposure: Never Smokeless Tobacco: Never AUDIT-C Answer Date Recorded Q1: How often [...] on file 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 Gender Identity Male 09/24/2022 8:52 PM CDT Sexual Orientation Straight 09/24/2022 8: 52 PM CDT 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 Not on file Not on file documented as of this encounter Plan of Treatment Not on file documented as of this encounter Visit Diagnoses Not on filedocumented in this encounter Care Teams Supervisor Industrial Arts Education Relationship Specialty Start Date End Date Tariq Washington MD [address] [place] [address] PCP - General Family Medicine 09/25/22 Monserrat Leyva NP [address] [place] [address] Psychiatry 09/26/23 Shekhar Joy MD [address] [place] [address] Referring Physician Psychiatry 09/26/23 Andrew Cruz MD [address] [place] [address] Referring Physician Ophthalmology 09/26/23 documented as of this encounter
--- OUTSIDE RECORDS SUMMARY | 2024-10-08 00:49 | XMS_ITS | Clinical Summary ---
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 Gender Identity Not on file Sexual Orientation Not on file Plan of Treatment Health Maintenance Due Date Last Done Comments Hepatitis C Virus (HCV) Screening 1950 TdaP Immunization 1950 Colonoscopy 1993 Colorectal Cancer Screening 1993 Cologuard 1998 Immunochemical Fecal Occult Blood 1998 Zoster Immunization (1 of 2) 1998 Pneumococcal Immunization (50+ years) (2 of 2 - PCV) 07/02/2017 07/02/2016 Respiratory Syncytial Virus (RSV) Immunization (Adult) (1 - 1-dose 75+ series) 11/07/2023 Influenza Immunization (#1) 02/09/202403/11, 03/24/2020, 04/22/2019, Additional history exists SARS-COV-2 Immunization ( season) 2024 03/17/2021, 07/29/2020, 07/08/2020 Hepatitis B Immunization Aged Out No longer eligible based on patient's age to complete this topic Meningococcal Immunization (ACWY) Aged Out No longer eligible based on patient's age to complete this topic Rotavirus Immunization Aged Out No lo nger eligible based on patient's age to complete this topic
--- OUTSIDE RECORDS SUMMARY | 2024-10-08 00:49 | XMS_ITS | Referral Summary ---
Author Organization [facility] [address] Address [address] [place] [address] Care Team Providers Care Heavy Equipment Diesel Mechanic Name Role Phone Tariq Washington MD Primary Care Provider Monserrat Leyva NP Unavailable [phone] Shekhar Joy MD Unavailable [phone] Andrew Cruz MD Unavailable Encounters Date Type Department Care Team Description 09/30/2024 Results Follow-Up [facility] Medical Group Primary Care at [address] [address] Tariq Washington MD 09/29/2024 6:03 PM CDT - 09/29/2024 11:59 PM CDT Hospital Encounter [address] [address] Manic affective disorder, recurrent episode, moderate degree (HCC); Prediabetes; Iron deficiency anemia, unspecified iron deficiency anemia type; Screening for malignant neoplasm of prostate Discharge Disposition: Discharge to home or self care 09/29/2024 10:30 AM CDT Lab [facility] Outpatient Lab at [address] [address] Encounter for medical examination to establish care (Primary Dx); Prediabetes 09/29/2024 10:00 AM CDT Office Visit [facility] Medical Group Primary Care at [address] [address] Tariq Washington MD Encounter for annual wellness visit (AWV) in Medicare patient (Primary Dx); Manic affective disorder, recurrent episode, moderate degree (HCC); Prediabetes; Iron deficiency anemia, unspecified iron deficiency anemia type; Screening for malignant neoplasm of prostate from Last 3 Months Allergies No known active allergies Medications lamoTRIgine [...] risks vs benefits. Return in 1 year Immunizations Immunization Administration Dates Next Due Influenza, Quad, Adjuvantate d, Intramuscular 05/08/2023,03/30/2022,03/29/2021,03/24 Influenza, Trivalent, Adjuva nted, Intramuscular 03/24/2024,04/22/2019,04/22/2019,03/16,03/16/2018 Influenza, Trivalent, High D ose, Split, Preservative Free, Intramuscular 04/04/2017,03/22/2016,03/21/2015 Influenza, Unspecified 03/29/2021,03/24/2020 Pneumococcal Conjugate PCV 13 07/12/2017 Pneumococcal Conjugate Pcv20 02/26/2024 Pneumococcal Polysaccharide PPV23 07/02/2016 Tdap 06/12/2024 ZOSTER Recombinant 06/01/2013 Social History Tobacco Use Types Packs/Day Years [...] on file 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 Gender Identity Male 09/24/2022 8:52 PM CDT Sexual Orientation Straight 09/24/2022 8: 52 PM CDT 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 Not on file Not on file Last Filed Vital Signs [...] 09/29/2024 9:59 AM CDT Plan of Treatment Not on file Procedures Procedure Name Priority Date/Time Associated Diagnosis [...] MD LAB BLOOD ORDERABLES Final Result [facility] [address] Department [place] [address] * Differential, auto (09/29/2024 12:00 PM CDT) Neutrophil abs 5.63 1.50 - 6.50 K/cumm Imm gran abs 0.01 0.00 - 0.10 K/cumm [facility] Lymphocyte abs 2.25 0.80 - 3.30 K/cumm [facility] Monocyte abs 0.80 0.20 - 0.80 K/cumm [facility] Eosinophil abs 0.21 0.00 - 0.50 K/cumm [facility] Basophil abs 0.06 0.00 - 0.10 K/cumm [facility] Neutrophil pct 62.9 % [facility] Comment: Interpretive Data Percent cell count reference ranges are not reported, since discordance with absolute values may lead to misinterpretation of CBC data. Current Interpretive Data was last revised on 2017. Imm gran pct 0.1 % [facility] Comment: Interpretive Data Percent cell count reference ranges are not reported, since discordance with absolute values may lead to misinterpretation of CBC data. Current Interpretive Data was last revised on 2017. Lymphocyte pct 25.1 % [facility] Comment: Interpretive Data Percent cell count reference ranges are not reported, since discordance with absolute values may lead to misinterpretation of CBC data. Current Interpretive Data was last revised on 2017. Monocyte pct 8.9 % [facility] Comment: Interpretive Data Percent cell count reference ranges are not reported, since discordance with absolute values may lead to misinterpretation of CBC data. Current Interpretive Data was last revised on 2017. Eosinophil pct 2.3 % [facility] Comment: Interpretive Data Percent cell count reference [...] BLOOD ORDERABLES Final Result Performing Organization Address City/[facility] Co de Phone Number [facility] [address] [facility] [employer] [place], [place] [id number] * PSA screen (09/29/2024 12:00 PM CDT) [...] BLOOD ORDERABLES Final Result Performing Organization Address City/[facility] Co de Phone Number [facility] [address] [employer] [place], [place] [id number] * (ABNORMAL) CBC with auto differential (09/29/2024 12:00 PM CDT) WBC 8.96 3.80 - 9.90 K/cumm Hgb 13.3 13.0 - 17.5 g/dL [facility] Hct 41.9 38.9 - 50.3 % [facility] Plt 262 150 - 400 K/cumm [facility] MPV 8.9(L) 9.1 - 12.3 fL [facility] RBC 4.30 4.30 - 5.80 M/cumm [facility] MCV 97.4(H) 81.3 - 96.4 fL [facility] MCH 30.9 27.1 - 33.3 pg [facility] MCHC 31.7(L) 32.3 - 35.7 g/dL [facility] RDW CV 14.5 11.1 - 14.9 % [facility] RDW SD 52.2(H) 35.7 - 48.1 fL [facility] NRBC abs 0.00 0.00 - 0.01 K/cumm [facility] Blood 09/29/2024 12:0 0 PM CDT 09/29/2024 7:04 PM CDT Tariq Washington MD LAB BLOOD ORDERABLES Final Result Performing Organization Address [facility] de Phone Number [facility] [address] [place] [place] [address] * (ABNORMAL) Hemoglobin A1c (09/29/2024 12:00 PM CDT) Hgb A1C 6.0(H) 4.0 - 5.6 % Estimated Average Glucose 126 mg/dL [facility] Comment: The ADA recommends reporting an estimated Average Glucose (eAG) with all Hemoglobin A1c results using the equation derived from a study of 507 normal and diabetic adults. Minority populations were underrepresented and children were not included. (Diabetes Care 31:7008-8025, 2008). The eAG is not equivalent to a fasting glucose. Blood 09/29/2024 12:0 0 PM CDT 09/29/2024 7:04 PM CDT Tariq Washington MD LAB BLOOD ORDERABLES Final Result Performing Organization Address [facility] de Phone Number [facility] [address] [place] [address] * Lipid panel (09/29/2024 12:00 PM CDT) Cholesterol 107 30 - 199 mg/dL Comment: [...] on 2018. HDL 56 >=40 mg/dL [facility] Comment: Interpretive Data Ages < or = [...] 2018. LDL, calculated 41 <=129 mg/dL [facility] Comment: Interpretive Data Ages < or = 19 years Acceptable: <110 mg/dL Borderline high: 110-129 mg/dL High: >or= 130 mg/dL Ages > or = 20 years Optimal: <100 mg/dL Near optimal: 100-129 mg/dL Borderline high: 130-159 mg/dL High: >160 mg/dL Calculated using the Dorian LDL-C estimating equation. This equation was implemented on 2024. Prior to this date LDL-C was estimated using the Friedewald equation. Literature References: 1. Expert Panel on Integrated Guidelines for Cardiovascular Health and Risk Reduction in Children and Adolescents. Pediatrics 2011;128:S213 2. NCEP Expert Panel. Circulation 2004;110:227 3. Dorian Schofield et al. SHAUN Cardiol. 2019October 08;5(5):540-548. doi: 10.1001/jamacardio.2020.0013 Current Interpretive Data was last revised on 2024. Non-HDL Cholesterol 51 mg/dL [facility] Comment: Interpretive Data Ages < or = [...] revised on 2018. Chol/HDL ratio 2 [facility] Blood 09/29/2024 12:0 0 PM CDT 09/29/2024 7:04 PM CDT us Tariq Washington MD LAB BLOOD ORDERABLES Final Result [facility] [address] Department [place] [address] * (ABNORMAL) Comprehensive metabolic panel (09/29/2024 12:00 PM CDT) Sodium 138 135 - 145 mmol/L Potassium, pl 3.9 3.3 - 4.9 mmol/L [facility] Chloride 99 97 - 110 mmol/L [facility] CO2 28 22 - 32 mmol/L [facility] Anion gap 11 2 - 15 mmol/L [facility] BUN 14 6 - 25 mg/dL [facility] Creatinine 0.78(L) 0.80 - 1.30 mg/dL [facility] Glucose 94 70 - 199 mg/dL [facility] Comment: Interpretive Data Fasting glucose >/= 126 [...] Calcium 9.6 8.5 - 10.3 mg/dL [facility] Bilirubin, total 0.3 0.1 - 1.2 mg/dL [...] BLOOD ORDERABLES Final Result Performing Organization Address [facility] de Phone Number [facility] [address] [address] Department [place] [address] * Hepatitis C antibody (09/25/2022 10:27 AM CDT) Hep C Ab Nonreactive Nonreactive [facility] Comment: Interpretive Data Nonreactive: Antibodies to HCV [...] Edited Result - Final Performing Organization Address [facility] Co de Phone Number [facility] [address] [address] Department [place] [address] * HM COLONOSCOPY (03/01/2011) us Historical Provider HEALTH MAINTENANCE Final Result from Last 3 Months or Most Recently Relevant to Health Maintenance Insurance MEDICARE [facility] MEDICARE AARP Care Teams Heavy Equipment Diesel Mechanic Relationship Specialty Start Date End Date Tariq Washington MD [address] [place] [address] PCP - General Family Medicine 09/25/22 Monserrat Leyva NP [address] [place] [address] Psychiatry 09/26/23 Shekhar Joy MD [address] [place] [address] Referring Physician Psychiatry 09/26/23 Andrew Cruz MD [address] [place] [address] Referring Physician Ophthalmology 09/26/23
[2024-10-08 07:04] VITALS: BP 141/64; PULSE 68; RESP 18; TEMP 36.4; O2SAT 99; BMI 21.3
[2024-10-08] MEDS: LACTATED RINGERS 1,000 ML 150 ML IV CONT (07:12)
--- NOTE | 2024-10-08 07:32 | P.PNAN_ITS ---
Anes - Initial Pre Proc Eval Procedure: Operation Date: 10/08/24 08:30 Proposed Procedures p Screening Colonoscopy - Dylan Lucero MD Date/Time: 10/08/24 07:32 Surgeon: Dylan Lucero MD Pre Op Diagnosis: screening colon Patient Data Age: 73 Gender: M Height: 1.7 m Weight: 61.7 kg Last Vital Signs Temp 97.6 F 10/08/24 07:04 Pulse 68 10/08/24 07:04 Resp 18 10/08/24 07:04 BP 141/64 H 10/08/24 07:04 Pulse Ox 99 10/08/24 07:04 O2 Del Method Room Air 10/08/24 07:04 Allergies Allergy/AdvReac Type Severity Reaction Status Date / Time NKDA Allergy Unknown none Uncoded 10/08/24 07:03 Home Medications ?Medication ?Instructions ?Recorded ?Confirmed ?Type ascorbic acid (vitamin C) 125 mg 125 mg PO DAILY 06/29/19 10/08/24 History chewable tablet (Vitamin C) buspirone 10 mg tablet 10 mg PO BID 06/29/19 10/08/24 History calcium 600 mg (as carbonate)-vit 1 tablet PO DAILY 06/29/19 10/08/24 History D3 10 mcg (400 unit) chewable tablet (Calcium 600 with Vitamin D3) fluticasone propionate 50 2 spray intranasal DAILY 06/29/19 10/08/24 History mcg/actuation nasal spray,suspension (Allergy Relief (fluticasone)) lamotrigine 100 mg tablet 100 mg PO BID 06/29/19 10/08/24 History (Lamictal) multivitamin 1 tablet PO DAILY 06/29/19 10/08/24 History omega-3 fatty acids-fish oil 360 1 cap PO DAILY 06/29/19 10/08/24 History mg-1,200 mg capsule (Fish Oil) ferrous sulfate 325 mg (65 mg 325 mg PO DAILY 07/13/24 10/08/24 History iron) tablet (iron) propranolol 10 mg tablet 10 mg PO DAILY 07/13/24 10/08/24 History rosuvastatin 20 mg tablet 20 mg PO DAILY 07/13/24 10/08/24 History Patient hx anesthesia problems: none Family hx anesthesia problems: none Results Review: All pre-operative results and documents have been reviewed as part of the pre- operative evaluation. [facility] Past Medical History Medical History Anxiety Hyperlipidemia Essential tremor Bipolar 1 disorder, manic, full remission Seasonal allergies Family History Family History Grandparent Hypertension Cerebrovascular accident Family history of throat cancer Mother Hypertension Family history of dementia Family history of malignant neoplasm of breast in first degree relative Father Cerebrovascular accident Sibling Family history of diabetes mellitus in first degree relative Social History Social History Smoking status: Never smoker Alcohol intake: never Substance use type: does not use Living arrangements: with family Spiritual care concerns: No Anes - Eval Final PreProcedure Day of Procedure 10/08/24 07:32 Patient weight: normal Lungs: normal air movement Airway: Mallampati scale class II Neurological: alert and oriented Last oral intake: >/= 8 hours ASA classification: III Emergent: no Anesthetic plan: proceed Anesthesia type and monitoring: general GIVS and standard monitoring Results Review: All pre-operative results and documents have been reviewed as part of the pre- operative evaluation. Hyperlipidemia, essential tremor, bipolar w jaime/anxiety by hx. Informed Consent: The patient's anesthetic plan and its attendant risks and benefits were discussed with the patient/family/POA. Questions were solicited and answers provided to the satisfaction of the patient/family/POA.
--- NOTE | 2024-10-08 08:15 | PM.HPGS ---
History of Present Illness History of Present Illness Consent: Risks, benefits, and alternatives have been discussed and questions answered. Patient agrees to proceed with procedure. Chief complaint: screening colon Narrative: Gianni Manrique is a 73 year old male here for screening colonoscopy, last one 10 years ago Review of Systems Review of Systems: All systems reviewed & are unremarkable except as noted in HPI and below PMFSH Past Medical History Medical History (Updated 10/08/24 @ 08:17 by Dylan Lucero MD) Colon cancer screening Anxiety Hyperlipidemia Essential tremor Bipolar 1 disorder, manic, full remission Seasonal allergies Family History Family History Grandparent Hypertension Cerebrovascular accident Family history of throat cancer Mother Hypertension Family history of dementia Family history of malignant neoplasm of breast in first degree relative Father Cerebrovascular accident Sibling Family history of diabetes mellitus in first degree relative Social History Social History Smoking status: Never smoker Alcohol intake: never Substance use type: does not use Living arrangements: with family Spiritual care concerns: No Meds Home Medications and Allergies Home Medications ?Medication ?Instructions ?Recorded ?Confirmed ?Type ascorbic acid (vitamin C) 125 mg 125 mg PO DAILY 06/29/19 10/08/24 History chewable tablet (Vitamin C) buspirone 10 mg tablet 10 mg PO BID 06/29/19 10/08/24 History calcium 600 mg (as carbonate)-vit 1 tablet PO DAILY 06/29/19 10/08/24 History D3 10 mcg (400 unit) chewable tablet (Calcium 600 with Vitamin D3) fluticasone propionate 50 2 spray intranasal DAILY 06/29/19 10/08/24 History mcg/actuation nasal spray,suspension (Allergy Relief (fluticasone)) lamotrigine 100 mg tablet 100 mg PO BID 06/29/19 10/08/24 History (Lamictal) multivitamin 1 tablet PO DAILY 06/29/19 10/08/24 History omega-3 fatty acids-fish oil 360 1 cap PO DAILY 06/29/19 10/08/24 History mg-1,200 mg capsule (Fish Oil) ferrous sulfate 325 mg (65 mg 325 mg PO DAILY 07/13/24 10/08/24 History iron) tablet (iron) propranolol 10 mg tablet 10 mg PO DAILY 07/13/24 10/08/24 History rosuvastatin 20 mg tablet 20 mg PO DAILY 07/13/24 10/08/24 History Allergies Allergy/AdvReac Type Severity Reaction Status Date / Time NKDA Allergy Unknown none Uncoded 10/08/24 07:03 Vital Signs Vital Signs - 24 hr 10/08/24 07:04 Temperature 97.6 F Pulse Rate 68 Respiratory Rate 18 Blood Pressure 141/64 H Pulse Oximetry 99 Oxygen Delivery Room Air Exam Const: General: comfortable and no acute distress HENMT: Face/Nose/Sinus: Normal nares present Eyes: General: appearance normal, both eyes and all related structures Neck: Neck: no JVD Resp: Auscultation: clear to auscultation bilaterally Cardio: Rate: regular rate Rhythm: regular rhythm GI: Inspection: non-distended GI Palp: Yes Soft to palpation Skin: General skin exam: normal color Neuro: Speech: normal speech Extrem: General: normal to inspection Psych: Mental Status: mental status grossly normal Assessment and Plan Assessment and plan (1) Colon cancer screening: Code(s): Z12.11 - Encounter for screening for malignant neoplasm of colon Status: Acute Assessment and Plan: colonoscopy
[2024-10-08 08:30] VITALS: BP 130/70; PULSE 55; RESP 15; O2SAT 97
[2024-10-08 08:40] VITALS: BP 95/49; PULSE 515; RESP 12; O2SAT 98
[2024-10-08 08:50] VITALS: BP 107/55; PULSE 57; RESP 22; O2SAT 100
== END 2024-10-08 09:11 | disposition home or self-care (01) ==
PROVIDERS: PCP Family Medicine; Referring Provider Family Medicine; Visit Provider Internal Medicine Gastroenterology
PROC: 0DJD8ZZ Inspection of Lower Intestinal Tract, Via Natural or Artificial Opening Endoscopic (ICD-10-PCS; CPT 45378; principal; 2024-10-08 08:30)
DX: Z12.11 Encounter for screening for malignant neoplasm of colon (principal); D12.8 Benign neoplasm of rectum; K57.30 Diverticulosis of large intestine without perforation or abscess without bleeding; E78.5 Hyperlipidemia, unspecified; F41.9 Anxiety disorder, unspecified; G25.0 Essential tremor; F30.4 Manic episode in full remission; Z80.1 Family history of malignant neoplasm of trachea, bronchus and lung; Z80.3 Family history of malignant neoplasm of breast; Z82.49 Family history of ischemic heart disease and other diseases of the circulatory system
CPT/HCPCS: 45385; 88305; J2003; J2704; J7120

== ENCOUNTER 2025-02-11 19:34 | Emergency (ER) | payer MEDICARE, SELFPAY ==
--- NOTE | ~2025-02-11 | CT_ITS ---
EXAMINATION: CT cervical spine wo con DATE: 02/11/2025 21:27 INDICATION: Pain after trauma TECHNIQUE: Computed tomography (CT) of the cervical spine was performed without intravenous contrast. The dose-length product was 144 mGy-cm. Automated exposure control and iterative reconstruction technique were employed. COMPARISON: None FINDINGS: There is a right posterior parietal-temporal skull fracture extending into the mastoid air cells. There is subtle overlying soft tissue swelling in the scalp with subcutaneous gas. Vertebral body heights are maintained. Craniovertebral junction is unremarkable. Odontoid process is normal. No evidence for perched facet. Spinous processes are normal. No paraspinal soft tissue abnormality. There is a 7 mm left apical nodule. No significant cervical lymphadenopathy. IMPRESSION: 1. No acute abnormality of the cervical spine. 2: Right posterior parietal-temporal skull fracture involving the mastoid air cells. 3: . Left upper lobe 7 mm nodule, likely benign. Follow-up CT chest recommended in 6 months. Reviewed, dictated and finalized at location O. IMPRESSION: 1. No acute abnormality of the cervical spine. 2: Right posterior parietal-temporal skull fracture involving the mastoid air c ells. 3: . Left upper lobe 7 mm nodule, likely benign. Follow-up CT chest recommended in 6 months.
--- NOTE | ~2025-02-11 | CT_ITS ---
EXAMINATION: CT brain wo con DATE: 02/11/2025 21:27 INDICATION: Status post fall. Trauma. TECHNIQUE: Computed tomography (CT) of the head was performed without intravenous contrast. The dose-length product was 605.33 mGy-cm. Automated exposure control and iterative reconstruction technique were employed. COMPARISON: CT dated 06/12/2024 FINDINGS: There is acute left frontal subarachnoid and parenchymal hemorrhage. Generalized atrophy. There are scattered mild periventricular and subcortical white matter changes, most likely related to small vessel ischemic disease (microangiopathy). There is a right mastoid effusion. There is a subtle nondisplaced skull fracture right posterior temporal-parietal skull extending into the superior aspect of the mastoid air cells. IMPRESSION: 1. Nondisplaced skull fracture right posterior temporal-parietal skull with effusion right mastoid air cells, possibly hemorrhage. 2: Left frontal subarachnoid and parenchymal hemorrhage. Reviewed, dictated and finalized at location O. IMPRESSION: 1. Nondisplaced skull fracture right posterior temporal-parietal skull with eff usion right mastoid air cells, possibly hemorrhage. 2: Left frontal subarachnoid and parenchymal hemorrhage.
--- OUTSIDE RECORDS SUMMARY | 2025-02-11 19:36 | XMS_ITS | Clinical Summary ---
Author Organization [facility] Address [address] [place] [address] Care Team Providers Care Gravity Prospector Name Role Phone Tariq Washington MD Primary Care Provider Monserrat Leyva NP Unavailable [phone] Shekhar Joy MD Unavailable [phone] Andrew Cruz MD Unavailable Allergies No known active allergies Medications lamoTRIgine (LaMICtal) 100 mg tablet TAKE 1 TABLET BY MOUTH IN THE MORNING DAILY AND TWO TABLETS NIGHTLY AT BEDTIME. 2 Active propranoloL (INDERAL) 10 mg tablet Take 1 tablet (10 mg total) by mouth 2 (two) times a day 2 Active omega-3 fatty acids 500 mg capsule Take 1,200 mg by mouth daily Active multivitamin with minerals (Multiple Vitamin-Mineral s) tablet Take 1 tablet by mouth daily Active busPIRone (BUSPAR) 10 mg tablet Take 2 tablets (20 mg total) by mouth 2 (two) times a day 4 Active rosuvastatin (Crestor) 20 mg tablet Take 1 tablet (20 mg total) by mouth daily 90 tablet 3 4 04/01/20 25 Active calcium carbonate-vitam in D3 1500 mg (600 mg elemental) -200 units per tablet daily Active ascorbic acid, vitamin C, 125 mg capsule as directed Orally Active ferrous sulfate 325 mg (65 mg of elemental iron) tablet 1 tablet Orally Three times a Week Active fluticasone propionate (FLONASE) 50 mcg/actuation nasal spray Administer 1 spray into each nostril daily Active Active Problems Problem Noted Date Diagnosed Date [...] Problems Maternal Grandmother Breast cancer Mother Migdalia Berkbigler Cancer Mother Migdalia Berniyahigler Narcolepsy Mother Migdalia Berkbigler Throat cancer Paternal Grandfather Hypertension Paternal Grandmother Stroke Paternal Grandmother Asthma Son Chris Manrique Relation Name Status Comments Brother Alive Father Kevan Manrique Father's Sister Unknown Maternal Grandfather Maternal Grandmother Mother Migdalia Christineigler Paternal Grandfather Paternal Grandmother Son Chris Manrique [...] on file 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 Gender Identity Male 09/24/2022 8:52 PM CDT Sexual Orientation Straight 09/24/2022 8: 52 PM CDT 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 Not on file [...] 9:59 AM CDT Height 170.2 cm (5' 7) 09/29/2024 9:59 AM CDT Body Mass Index 21.93 09/29/2024 9:59 AM CDT Plan of Treatment Health Maintenance Due Date Last Done Comments Covid-19 Vaccine ( season) 2025 04/25/2024, 06/06/2023, 04/21/2022, Additional history exists Influenza Vaccine (#1) 2025 , 05/08/2023, 03/30/2022, Additional history exists Depression Screening 09/29/2025 09/29/2024, 04/01/2024, 10/29/2023, Additional history exists Fall Risk Assessment 09/29/2025 09/29/2024, 10/29/2023, 09/26/2023, Additional history exists Well Visit 65+ 09/29/2025 09/29/2024, 09/08, 09/25/2022 Zoster Vaccine (2 of 2) 09/29/2025 06/01/2013 Post poned from 07/27/2013 (Insurance / Financial) DTaP/Tdap/Td Vaccine (2 - Td or Tdap) 06/12/2034 06/12/2024 Hepatitis C Screening Completed 09/25/2022 Hepatitis B Screening Completed 09/26/2023 Pneumococcal vaccine 65+ Completed 024, 07/12/2017, 07/02/2016 Colon Cancer Screening-Colonoscopy Discontinued 10/12/2024, 03/01/2011 Procedures Procedure Name Priority Date/Time Associated Diagnosis Comments COLONOSCOPY Routine 10/12/2024 8:52 AM CDT HEPATITIS C ANTIBODY Routine 09/25/2022 10:27 AM CDT Encounter for hepatitis C screening test for low risk patient from Last 3 Months or Most Recently Relevant to Health Maintenance Results * (ABNORMAL) COLONOSCOPY (10/12/2024 8:52 AM CDT) Scribed Colonoscopy Abnormal Dylan Rollins MD HEALTH MAINTENANCE Final Result * Hepatitis C antibody (09/25/2022 10:27 AM CDT) Hep C Ab Nonreactive Nonreactive [facility]CH[facility] Comment: Interpretive Data Nonreactive: Antibodies to HCV [...] - GENERAL ORDERABLES Edited Result - Final [facility] BLANCHARD [id number] Department of Laboratories [place], [place] [id number] from Last 3 Months or Most Recently Relevant to Health Maintenance Insurance MEDICARE [facility] Member Subscriber Plan / Payer ( fective 2022-) Name:Gianni Manrique Relation to Subscriber:Self Name:Gianni Manrique Payer ID:[id number] Group ID:Not on file Type:COMMERCIAL Address: [place] [id number] Care Teams Gravity Prospector Relationship Specialty Start Date End Date Tariq Washington MD [address] [place], [place] [id number] PCP - General Family Medicine 09/25/22 Monserrat Leyva, KATY [address] [place] [address] Psychiatry 09/26/23 Shekhar Joy MD [address] [place] [address] Referring Physician Psychiatry 09/26/23 Andrew Cruz MD [address] [place] [address] Referring Physician Ophthalmology 09/26/23
--- OUTSIDE RECORDS SUMMARY | 2025-02-11 19:36 | XMS_ITS | Clinical Summary ---
Author Organization [facility] Address [address] [place] [address] Care Team Providers Care Engineering Job Titles Name Role Phone Tianna Olson MD Primary [...] 4:42 PM CDT Height 170.2 cm (5' 7) 10/27/2019 4:42 PM CDT Body Mass Index 21.93 10/27/2019 4:42 PM CDT Plan of Treatment Health Maintenance Due Date Last Done Comments Hepatitis C 1966 DTaP, Tdap and Td [...] this topic Medical Devices Implanted Type Area Rental Sales Associate Device Identifier Shelf Expiration Date Model / Serial / Lot Iol [employer] Zcboo - [id number] Implanted:Qty: 1 on 2019 by Andrew Cruz MD at [facility] Lens Left: Eye [employer] 10/15/2022 [id number] / [id number] / Insurance MEDICARE [facility] Care Teams Engineering Job Titles Relationship Specialty Start Date End Date Tianna Olson MD [address] [place] [address] PCP - General FAMILY PRACTICE 11/01/19
--- OUTSIDE RECORDS SUMMARY | 2025-02-11 19:36 | XMS_ITS | Encounter Summary ---
Author Organization [facility] Address [address] [place] [address] Care Team Providers Care Drapery Hemmer Automatic Name Role Phone Tianna Olson MD Primary Care Pro vider Encounter Details Date Type Department Care Team (Late st Contact Info) Description 10/27/2019 Prep for Procedure [facility] [address] [place], [place] [id number] Andrew Cruz MD [address] [facility] [address] [place] [address] Social History Tobacco Use Types Packs/Day Years [...] DETECTED NOT DETECTED 11/04/2019 9:[address] [facility] [address] Comment: A Not Detected (negative) [...] providers and patients using the following websites: https://www.Farmeron.[email or web address]/home/Covid-19/HCP/QuestIVD/fact- sheet.html https://www.Farmeron.Mines.io/home/Covid-19/Patients/ QuestIVD/fact-sheet.html This test has been authorized by the FDA under an Emergency Use Authorization (EUA) for use by authorized laboratories. Due to the current public health emergency, [facility] is receiving a high volume of samples [...] about COVID-19 can be found at the [facility] website: www.Cura TV.Mines.io/Covid19. Test performed at [facility] [place] [address] [address] [facility] [address] Director: ABDULLAHI NIXON DO,MPH NASOPHARYNGEAL SWAB / Unknown 11/03/2019 10:03 AM CDT Andrew Cruz MD MICROBIOLOGY - GENERAL ORDERA BLES Final Result [facility] [address] [place] [address], documented in this encounter Visit Diagnoses Diagnosis Pre-op testing- Primary Preoperative examination, unspecified documented in this encounter Additional Health Concerns Infection Onset Date Last Indicated Resolved Time COVID-19 Rule Out 11/03/2019 11/03/2019 11/04/2019 9:10 PM CDT documented as of this encounter Care Teams Drapery Hemmer Automatic Relationship Specialty Start Date End Date Tianna Olson MD [address] [place] [address] PCP - General FAMILY PRACTICE 11/01/19 documented as of this encounter
--- OUTSIDE RECORDS SUMMARY | 2025-02-11 19:37 | XMS_ITS | Patient Health Record ---
Author Organization [facility] Address [address] [place] [address] Care Team Providers Care Underground Mining Section Foreman Name Role Phone Monserrat Light Unavailable [phone] Nelda Narayan Unavailable [phone] Allergies No Known Allergies Reason For Referral No Information Medications Medication SIG (Take, Route, Frequency, Duration) Notes Start Date End Date Status busPIRone HCl 10 MG Tablet Take 2 tablet s by mouth twice daily; Duration: 90 Active Ascorbic Acid 125 MG Tablet Chewable as directed Orally Active Fluticasone Propionate (Inhal) 50 MCG/ACT Aerosol Powder Breath Activated 1 puff Inhalation Twice a day Active Multivitamin - Tablet 1 tablet Orally On ce a day Active Calcium + Vitamin D3 600-5 MG-MCG Tablet 1 tablet with a meal Orally Once a day Active Ferrous Sulfate 325 (65 Fe) MG Tablet 1 tablet Orally Three times a Week Active Propranolol HCl 10 MG Tablet 1 tablet Oral twice a day; Duration: 90 days Active [place] 3 1000 MG Capsule 1 capsule Orally once daily Active lamoTRIgine 100 MG Tablet 1.5 tablet in the morning and 2 tablets at bedtime Oral; Duration: 90 days Active Rosuvastatin Calcium 20 MG Tablet 1 tablet Orally Once a day Active lamoTRIgine 150 MG Tablet 1 tablet Orally Once a day; Duration: 90 days in the morning 12/21/2024 Active Immunizations Vaccine Route Administration Date Status Comme nts Influenza, high dose seasonal Unknown 03/21/2015 Admini stered Influenza, high dose seasonal Unknown 03/22/2016 Admini stered Influenza, high dose seasonal Unknown 04/04/2017 Admini stered Influenza, unspecified formulation Unknown 03/24/2020 A dministered Influenza, unspecified formulation Unknown 03/29/2021 A dministered Infuenza, trivalent, recombi nant, preservative free Unknown 03/16/2018 Administered Infuenza, trivalent, recombi nant, preservative free Unknown 04/22/2019 Administered Pneumococcal polysaccharide PPV23 Unknown 07/02/2016 Ad ministered Social History Tobacco Use: Social History Observation Description Date Details (start date - stop date) Never Smoker NA - NA Sex Assigned At : Social History Observation Description Sex Assigned At Male Social History Miscellaneous: Social Info Question Answer Notes Advance Care Planning Are you your own decision-maker Yes Do you have Power of Safety Investigator/Cause Analyst for Health or Medi merna? 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 Migrated Social History Migrated Social History Alcohol Intake: None 10/21/2023,Tobacco Years: Never smoker 08/20/2023 Problems Problem Type SNOMED Code ICD Code Onset Dates Problem Status W/U Status Risk Notes Problem Bipolar II disorder (75530005) Bipolar II disorder (F31.81) Active confirmed Problem Generalized anxiety disorder (15199071) Generalized anxiety disorder (F41.1) Active confirmed Vital Signs Height-cm 167.64 cm 01/11/2025 Blood pressure diastolic 65 mm Hg 01/11/2025 Weight-kg 62.14 kg 01/11/2025 Height 66.00 in 01/11/2025 Blood pressure systolic 120 mm Hg 01/11/2025 Weight 137 lbs 01/11/2025 BMI 22.11 kg/m2 01/11/2025 Encounters Encounter Location Date Provider Diagnosis [facility] [address] [place] [address] 07/20/2024 Monserrat Light Bipolar II disorder F31.81 and Generalized anxiety disorder F41.1 [facility] [address] [place] [address] 01/11/2025 Monserrat Light Bipolar II disorder F31.81 and Generalized anxiety disorder F41.1 [facility] [address] [place] [address] 12/21/2024 Monserrat Light [facility] [address] [place] [address] 01/11/2025 Monserrat Light Assessments Encounter Date Diagnosis (ICD Code) Assessment Notes Treatment Notes Treatment Clinical Notes Section Notes 07/20/2024 Bipolar II disorder (ICD-10 - F31.81) 01/11/2025 Bipolar II disorder (ICD-10 - F31.81) Lamotrigine is an anticonvulsant and mood stabilizer used in psychiatry. Lamotrigine use is associated with benign rashes (incidence approximately 10%) and rare serious rashes that may require hospitalization and discontinuation of treatment, including Naidu-Rowdy syndrome and toxic epidermal necrolysis. Pt educated on importance of titration schedule and to take the medication only as prescribed. Pt educated that if they miss 5 or more consecutive doses then this medication will need to be re-titrated to reduce risk of rash. If any rash is noted, patient is instructed to stop taking this medication and call office. If rash is severe, they are to present immediately to the emergency room. 01/11/2025 Generalized anxiety disorder (ICD-10 - F41.1) 07/20/2024 Generalized anxiety disorder (ICD-10 - F41.1) 07/20/2024 Other Increase Lamictal to 150mg qAM, [...] effects of psychotropic medications. -Crisis prevention hotline 988. 01/11/2025 Other Stable on current medication regimen, continue at current doses. -Refills sent in today -No concerns today Patient educated on all medications including potential benefits, side effects, risks. Educated on proper dosing schedule and importance of compliance. Referred to therapy -Assessment and treatment plan reviewed with patient. -Compliance with treatment plan importance discussed. -Discussed the risks/benefits of this medication -Discussed medication side effects. -Contact office if symptoms worsen. -Discussed that it can take up to 6-8 weeks to see full therapeutic effects of psychotropic medications. -Crisis prevention hotline 988. Plan Of Treatment Next Appt Details Provider Name:Nelda Narayan , 02/12/2025 10:00:00 AM, [address], [place], [address], Provider Name:Monserrat Hebert richelle, 05/10/2025 10:45:00 AM, [address], [place], [address], Insurance Providers Payer Name Payer Address Payer Phone Subscriber Number Group Number Insured Name Patient Relationship to Insured Coverage Start Date Coverage End Date Medicare-I l Medicare [address] [place] [address] [id number] CANDACE PAGAN Self - patient is the insured [facility] Medicare Supplement [address] [facility] [place] [address] [id number] CANDACE PAGAN Self - patient is the insured Medical (General) History Medical History History ICD Code Problems: Bipolar II disorder Generalized anxiety disorder Patient encounter status Recurrent manic episodes, moderate essential tremor Surgical History Surgery Date(Month/Year) Cataract surgery (83979) 08/26/2019 Any surgical history 11/22/2000
[2025-02-11 19:47] VITALS: BP 148/69; PULSE 72; RESP 16; TEMP 36.9; O2SAT 100
--- NOTE | 2025-02-11 20:25 | ED.FALL ---
HPI - Fall General Chief Complaint: Fall Stated Complaint: fell, but hit the back of his head. Time Seen by Provider: 02/11/25 20:21 History of Present Illness HPI Narrative: Patient is a 74-year-old male who presents to the emergency department this evening status post ground level fall. Patient was playing soccer and was getting ready to kick the ball when he missed the ball, foot grazed on top of the ball causing him to fall backward and hit the back of his head. Patient states that he does not remember the actual fall but remembers kicking the ball. Denies any blood thinner use. Patient does have a small abrasion to the back of his head otherwise no additional symptoms or concerns. Denies any neck pain. Family members are currently present at bedside and confirmed that this was witnessed by patient's granddaughter confirming that it was a mechanical fall. Related Data Home Medications ?Medication ?Instructions ?Recorded ?Confirmed ?Last Taken ?Type ascorbic acid (vitamin C) 125 mg 125 mg PO DAILY 06/29/19 02/11/25 02/11/25 History chewable tablet (Vitamin C) buspirone 10 mg tablet 10 mg PO BID 06/29/19 02/11/25 02/11/25 History calcium 600 mg (as carbonate)-vit 1 tablet PO DAILY 06/29/19 02/11/25 02/11/25 History D3 10 mcg (400 unit) chewable tablet (Calcium 600 with Vitamin D3) fluticasone propionate 50 2 spray intranasal DAILY 06/29/19 02/11/25 02/11/25 History mcg/actuation nasal spray,suspension (Allergy Relief (fluticasone)) lamotrigine 100 mg tablet 100 mg PO BID 06/29/19 02/11/25 02/11/25 History (Lamictal) multivitamin 1 tablet PO DAILY 06/29/19 02/11/25 02/11/25 History omega-3 fatty acids-fish oil 360 1 cap PO DAILY 06/29/19 02/11/25 02/11/25 History mg-1,200 mg capsule (Fish Oil) ferrous sulfate 325 mg (65 mg 325 mg PO DAILY 07/13/24 02/11/25 02/11/25 History iron) tablet (iron) propranolol 10 mg tablet 10 mg PO DAILY 07/13/24 02/11/25 02/11/25 History rosuvastatin 20 mg tablet 20 mg PO DAILY 07/13/24 02/11/25 02/11/25 History Allergies Allergy/AdvReac Type Severity Reaction Status Date / Time NKDA Allergy Unknown none Uncoded 02/11/25 19:53 Review of Systems Review of Systems: All systems are reviewed and are negative unless stated otherwise in the HPI. [facility] Past Medical History Medical History Colon cancer screening Anxiety Hyperlipidemia Essential tremor Bipolar 1 disorder, manic, full remission Seasonal allergies Family History Family History Grandparent Hypertension Cerebrovascular accident Family history of throat cancer Mother Hypertension Family history of dementia Family history of malignant neoplasm of breast in first degree relative Father Cerebrovascular accident Sibling Family history of diabetes mellitus in first degree relative Social History Social History Smoking status: Never smoker Alcohol intake: never Substance use type: does not use Living arrangements: with family Spiritual care concerns: No Exam Narrative: General: Alert, awake, afebrile, in no acute distress. HEENT: PERRL, no rhinorrhea, no post nasal drip, oropharynx clear, small abrasion to the back of the head. Neck: Trachea midline, no JVD, no lymphadenopathy, no midline cervical spine tenderness palpation. Cardiovascular: Regular rate and rhythm, no murmurs, rubs or gallops, no peripheral edema. Respiratory: Clear to auscultation bilaterally, no tachypnea, no wheezing, no rhonchi, no rubs, no respiratory distress. Abdomen: Soft, nontender, nondistended, no rebound, no guarding, no peritoneal signs. Musculoskeletal: No joint swelling or deformity, normal muscle tone. Skin: No rashes or petechia, no signs of infection. Psychiatric: Alert and oriented, normal behavior and judgment for situation. Neurological: Alert and oriented to person, place, and time. Follows all commands. No focal deficits, speech is clear and fluent. Course Vital Signs Vital signs: Vital Signs Temperature 98.4 F 02/11/25 19:47 Pulse Rate 72 02/11/25 19:47 Respiratory Rate 16 02/11/25 19:47 Blood Pressure 148/69 H 02/11/25 19:47 Pulse Oximetry 100 02/11/25 19:47 Oxygen Delivery Room Air 02/11/25 19:47 Temperature 97.8 F 02/11/25 22:34 Pulse Rate 77 02/11/25 22:34 Respiratory Rate 16 02/11/25 22:34 Blood Pressure 140/74 02/11/25 22:34 Pulse Oximetry 98 02/11/25 22:34 Oxygen Delivery Room Air 02/11/25 19:47 MDM - Fall MDM Narrative Medical decision making narrative: The patient was evaluated by myself in the emergency department. History is obtained from patient who is an independent historian and physical exam was performed. External medical records were reviewed at this time. Imaging studies obtained included CT brain and C-spine without IV contrast which was independently interpreted by me revealing: IMPRESSION: 1. Nondisplaced skull fracture right posterior temporal-parietal skull with effusion right mastoid air cells, possibly hemorrhage. 2: Left frontal subarachnoid and parenchymal hemorrhage. 3. No acute abnormality of the cervical spine. 4: Left upper lobe 7 mm nodule, likely benign. Follow-up CT chest recommended in 6 months. At this time, patient and family members were informed of these findings at bedside. [facility] transfer line was contacted at [phone] and transfer was initiated at this time. Patient was contacted per family members request test patient's doctors are through [facility]. Transfer was accepted under accepting ED physician Dr. Vaca at 2205. Per her request, patient was administered 500 mg of IV Keppra. Differential diagnosis considerations include intracranial hemorrhage, fractures, dislocations. Comorbidities impacting this visit include none. I have evaluated and discussed social determinants of health with the patient that could potentially impact subsequent diagnosis and treatment plans. On repeat assessment of the patient, reevaluation revealed that the patient is doing well and is in no acute distress. Patient symptoms have improved since he arrived to our emergency department. Repeat vital signs were all reviewed and noted to be stable. Current blood pressure 140/74 mmHg. Differential diagnosis and treatment plan were discussed with the patient at bedside. Patient agrees with discussion and after shared medical decision making agrees with transfer. All questions were answered to the patient's satisfaction. Critical care time of 55 minutes, exclusive of separately performed procedures, necessary for treating or preventing eminent or life-threatening deterioration of patient's condition of traumatic intracranial hemorrhage requiring transfer to facility for higher level of care, focused on patient care provided personally by me and time spent during initial evaluation, physical examination, ordering and performing treatments and interventions, ordering and reviewing laboratory studies, ordering and reviewing radiographic studies, re-evaluation of the patient's condition, evaluation of the patient's response to treatment, and discussion of patient case with multiple consultants. Critical Care Time Critical Care Time Critical Care Time: Yes Total Critical Care Time: 55 (Please refer to [facility] for attestation.) Discharge Plan Discharge Clinical Impression: Fall from ground level, Head injury, Skull fracture, Subarachnoid hemorrhage, Cerebral parenchymal hemorrhage Patient Disposition: Acute Care Hospital Condition: Stable Patient Language: Australian Prescriptions: No Action Calcium 600 with Vitamin D3 600 mg(1,500mg) -400 unit tablet,chewable 1 tablet PO DAILY ascorbic acid (vitamin C) [Vitamin C] 125 mg tablet,chewable 125 mg PO DAILY omega-3 fatty acids-fish oil [Fish Oil] 360-1,200 mg capsule 1 cap PO DAILY multivitamin Tablet 1 tablet PO DAILY fluticasone propionate [Allergy Relief (fluticasone)] 50 mcg/actuation spray,suspension 2 spray NASAL DAILY Rx Instructions: administer into each nostril lamotrigine [Lamictal] 100 mg tablet 100 mg PO BID buspirone 10 mg tablet 10 mg PO BID Patient Comments: Dr. Pardo (psych) prescribes propranolol 10 mg tablet 10 mg PO DAILY rosuvastatin 20 mg tablet 20 mg PO DAILY Patient Comments: last took at 02/10/2025 ferrous sulfate [iron] 325 mg (65 mg iron) tablet 325 mg PO DAILY Follow-up/Referrals: Felix,Tariq Louis MD [Primary Care Provider, Unknown]
[2025-02-11 20:26] VITALS: BP 163/81; PULSE 74; RESP 18; O2SAT 100
--- OUTSIDE RECORDS SUMMARY | 2025-02-11 21:11 | XMS_ITS | Encounter Summary ---
Author Organization [facility] Address [address] [place] [id number] Care Team Providers Care Captain Assistant Name Role Phone Tianna Olson MD Primary Care Pro vider Encounter Details Date Type Department Care Team (Late st Contact Info) Description 10/27/2019 Prep for Procedure [facility] [address] [place], [place] [id number] Andrew Cruz MD [address] [facility] [address] [place] [address] Social History Tobacco Use Types Packs/Day Years [...] DETECTED NOT DETECTED 11/04/2019 9:[address] [facility] [address] Comment: A Not Detected (negative) [...] providers and patients using the following websites: https://www.[employer]/home/Covid-19/HCP/[facility]/fact- sheet.html https://www.[employer]/home/Covid-19/Patients/ [facility]/fact-sheet.html This test has been authorized by the FDA under an Emergency Use Authorization (EUA) for use by authorized laboratories. Due to the current public health emergency, [employer] is receiving a high volume of samples [...] about COVID-19 can be found at the [employer] website: www.[employer].[place]arnova/Covid19. Test performed at [facility] [place] [address] [address] [facility] [place] [address] Director: ABDULLAHI NIXON DO,MPH NASOPHARYNGEAL SWAB / Unknown 11/03/2019 10:03 AM CDT Andrew Cruz MD MICROBIOLOGY - GENERAL ORDERA BLES Final Result [facility] [address] [place] [address], documented in this encounter Visit Diagnoses Diagnosis Pre-op testing- Primary Preoperative examination, unspecified documented in this encounter Additional Health Concerns Infection Onset Date Last Indicated Resolved Time COVID-19 Rule Out 11/03/2019 11/03/2019 11/04/2019 9:10 PM CDT documented as of this encounter Care Teams Captain Assistant Relationship Specialty Start Date End Date Tianna Olson MD [address] [place] [address] PCP - General FAMILY PRACTICE 11/01/19 documented as of this encounter
--- OUTSIDE RECORDS SUMMARY | 2025-02-11 21:11 | XMS_ITS | Clinical Summary ---
Author Organization [facility] Address [address] [place] [address] Care Team Providers Care Electron Microprobe Operator Name Role Phone Tianna Olson MD Primary [...] this topic Medical Devices Implanted Type Area Can Stacker Device Identifier Shelf Expiration Date Model / Serial / Lot Iol [employer] Zcboo - [id number] Implanted:Qty: 1 on 2019 by Andrew Cruz MD at [facility] Lens Left: Eye [employer] 10/15/2022 [id number] / [id number] / Insurance MEDICARE [facility] Care Teams Electron Microprobe Operator Relationship Specialty Start Date End Date Tianna Olson MD [address] [place] [address] PCP - General FAMILY PRACTICE 11/01/19
--- OUTSIDE RECORDS SUMMARY | 2025-02-11 21:11 | XMS_ITS | Clinical Summary ---
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 Member Subscriber Plan / Payer ( fective 2022-) Name:Gianni Manrique Relation to Subscriber:Self Name:Gianni Manrique Payer ID:[id number] Group ID:Not on file Type:COMMERCIAL Address: [place] [id number] Care Teams Condenser Tester Relationship Specialty Start Date End Date Tariq Washington MD [address] [place], [place] [id number] PCP - General Family Medicine 09/25/22 Monserrat Leyva, KATY [address] [place] [address] Psychiatry 09/26/23 Shekhar Joy MD [address] [place] [address] Referring Physician Psychiatry 09/26/23 Andrew Cruz MD [address] [place] [address] Referring Physician Ophthalmology 09/26/23
[2025-02-11 22:00] VITALS: BP 147/80; PULSE 78; RESP 18; O2SAT 98
[2025-02-11] MEDS: levETIRAcetam 500MG/NACL 100ML 500 MG/100 ML BAG 400 MG IVPB (22:24)
[2025-02-11 22:30] VITALS: TEMP 36.6
[2025-02-11 22:34] VITALS: BP 140/74; PULSE 77; RESP 16; TEMP 36.6; O2SAT 98
== END 2025-02-11 22:53 | disposition short-term general hospital (02) ==
PROVIDERS: Emergency Provider Emergency Medicine; PCP Family Medicine
DX: S02.0XXA Fracture of vault of skull, initial encounter for closed fracture (principal); S06.6X9A Traumatic subarachnoid hemorrhage with loss of consciousness of unspecified duration, initial encounter; W18.39XA Other fall on same level, initial encounter; Y93.66 Activity, soccer
CPT/HCPCS: 70450; 72125; 96374; 99291; J1953